=== PATIENT | female | born 1960 | race Caucasian/White ===

== ENCOUNTER 2022-05-10 09:29 | Outpatient (CLI) | payer BC, SELFPAY ==
--- NOTE | 2022-05-10 09:15 | DI.RAD_ITS ---
Exam(s) XR KNEE LT 3V AP,LAT,PRASHANTH EXAM: XR KNEE LT 3V AP,LAT,PRASHANTH CLINICAL HISTORY: knee pain. TECHNIQUE: 2D digital imaging was performed of the left knee. Three images were obtained. Merchant ,AP and lateral views were obtained. COMPARISON: No exams were available for comparison FINDINGS: BONES: No acute fracture is present. No bony destructive lesion is seen. JOINTS: There is mild narrowing of the medial femoral tibial joint space. Mild spurring is seen in t he medial femoral tibial and patellofemoral joints. No joint effusion is seen. SOFT TISSUE: Normal. IMPRESSION: Mild degenerative changes of the left knee. DATA REPOSITORY: RADIATION DOSE DELIVERED:
== END 2022-05-10 09:30 | disposition home or self-care (01) ==
LOC: DIORS 09:29
PROVIDERS: PCP Internal Medicine; Referring Provider Internal Medicine; Visit Provider Student in an Organized Health Care Education/Training Program
DX: M17.12 Unilateral primary osteoarthritis, left knee (principal)
CPT/HCPCS: 73562

== ENCOUNTER 2022-06-06 02:33 | Outpatient (CLI) | payer BC, SELFPAY ==
--- NOTE | 2022-06-06 07:00 | DI.MRI_ITS ---
Exam(s) MR LOWER JOINT LT WO EXAM: MR LOWER JOINT LT WO CLINICAL HISTORY: L KNEE PAIN,internal derangement, m23.92 TECHNIQUE: Multiplanar multisequence MRI of the knee was performed. COMPARISON: CR XR KNEE LT 3V AP,LAT,PRASHANTH from 05/10/2022 FINDINGS: EFFUSION: There is a small-moderate size joint effusion. There a tiny thao cyst MARROW:There is mild bone contusion signal in the medial tibial plateau and medial femoral condyle. No abnormal intraosseous signal of the lateral compartment nor in the fibular head and neck. There a re no significant osseous lesions. PATELLOFEMORAL COMPARTMENT: The quadriceps tendon is intact. The patellar ligament is intact. There is mild thickening of the retropatellar cartilage, slightly more so medially than laterally. M ild subarticular edema in the posterior patella. No osteochondral defect.There is no intraosseous si gnal to suggest recent patellar dislocation. There are no patellar retinacular tears. CRUCIATE LIGAMENTS: The anterior cruciate ligament is intact.The posterior cruciate ligament is intac t. MEDIAL COMPARTMENT/MEDIAL MENISCUS: Tear in the outer 3rd of the posterior horn of the medial meniscu s. Some meniscal extrusion subjacent to an lateral to marginal osteophyte at this level. Meniscal r oot appears intact. Anterior horn appears intact. There is a moderate uniform thinning of the carti ronnie over the medial femoral condyle. Subarticular edema seen in the mid tibial plateau and most pos terior weight-bearing aspect of the medial condyle. Marginal osteophytes noted.. MEDIAL COLLATERAL LIGAMENT: Intact LATERAL COMPARTMENT/LATERAL MENISCUS: There is no evidence of lateral meniscal tear.Minimal degenerat heather changes in the cartilage over the lateral femoral condyle. No osteochondral defects. No obvious marginal osteophytes. ILIOTIBIAL BAND: Intact LATERAL COLLATERAL LIGAMENT COMPLEX: The fibular collateral ligament is intact. The biceps femoris t endon is intact.Popliteus muscle and tendon are intact. IMPRESSION: 1. There is a tear in the outer 3rd of the posterior horn of the medial meniscus which is associated with an element of meniscal extrusion at this level. No tear of the anterior horn. There is moderat e cartilage loss over the medial femoral condyle as well as subarticular edema. Marginal osteophytes . 2. No meniscal tear nor significant cartilage abnormalities in the lateral compartment. 3. No cruciate nor collateral ligament tears. 4. Mild chondromalacia patella. Small amount of increased joint fluid. DATA REPOSITORY:
== END 2022-06-06 02:53 ==
LOC: DI 02:34
PROVIDERS: PCP Internal Medicine; Visit Provider Student in an Organized Health Care Education/Training Program
DX: M23.8X2 Other internal derangements of left knee; M25.562 Pain in left knee; M25.462 Effusion, left knee; M71.22 Synovial cyst of popliteal space [Baker], left knee; S83.242A Other tear of medial meniscus, current injury, left knee, initial encounter; M22.42 Chondromalacia patellae, left knee
CPT/HCPCS: 73721